=== PATIENT | male | born 1975 | race Caucasian/White ===

== ENCOUNTER → 2020-05-25 14:39 | Outpatient (CLI) | payer OTHER, SELFPAY ==
--- NOTE | 2020-05-25 15:18 | DI.ECHO.S_ITS ---
:Reason For Study: CARDIOMYOPATHY : :Ordering Physician: ROSANNA : :DELGADO Performed By: Helen Hawkins : :Referring: DELGADO MARTE : Interpretation Summary The left ventricle is normal in size and wall thickness. Left ventricular ejection fraction is estimated to be 45%. There has been no significant change since the previous exam. There is mild global hypokinesis of the left ventricle. Diastolic parameters suggest probable normal left ventricular diastolic function and normal filling pressures. The right ventricle is normal in size and function. The left atrial size is normal. Right atrial size is normal. There is no significant valvular heart disease. The aortic root is normal size. Procedure: A two-dimensional transthoracic echocardiogram with color flow and Doppler was performed. The study quality was technically adequate. Comparison is made with the echocardiogram of 09/12/2013. The patient was in sinus rhythm with heart rates between 67-82 bpm during the exam. Left Ventricle: The left ventricle is normal in size and wall thickness. Left ventricular ejection fraction is estimated to be 45%. There has been no significant change since the previous exam. There is mild global hypokinesis of the left ventricle. Diastolic parameters suggest probable normal left ventricular diastolic function and normal filling pressures. Right Ventricle: The right ventricle is normal in size and function. Atria: The left atrial size is normal. Right atrial size is normal. There is no Doppler evidence for an interatrial shunt. Mitral Valve: The mitral valve is normal in structure and function. There is trace mitral regurgitation. Aortic Valve: The aortic valve is not well visualized. The aortic valve opens well. There is no aortic valve stenosis. No aortic regurgitation is present. Tricuspid Valve: The tricuspid valve is normal in structure and function. There is a trace or physiologic amount of tricuspid regurgitation. Pulmonic Valve: The pulmonic valve leaflets are thin and pliable; valve motion is normal. There is no pulmonic valvular regurgitation. There is no significant valvular heart disease. Great Vessels: The aortic root is normal size. The ascending aorta is normal in size. The IVC is of normal diameter and collapses greater than 50% with a sniff. This suggests a low right atrial pressure of 3 mm Hg. Pericardium/ Pleura There is no pericardial effusion. There is no pleural effusion. MMode/2D Measurements & Calculations LVIDd: 5.1 cm LVOT diam: 2.2 cm LVIDs: 3.9 cm Ao root diam: 3.0 cm FS: 24.9 % asc Aorta Diam: 3.0 cm IVSd: 0.71 cm Ao Arch Diam (Prox Trans): 2.5 cm LVPWd: 0.77 cm LV quiroz. diameter/BSA (cm/m^2): 2.8 LV sys. diameter/BSA (cm/m^2): 2.1 LA A2 area: 19.0 cm2 RA long axis: 3.9 cm LA A4 area: 13.2 cm2 RA area: 9.7 cm2 LA length (vol): 4.1 cm RA vol: 20.2 ml LA vol: 52.4 ml RA : 11.0 ml/m2 LA vol index: 28.5 ml/m2 IVC diam: 1.4 cm RVD1 (basal): 2.2 cm TAPSE: 1.7 cm Doppler Measurements & Calculations Ao V2 max: 140.9 cm/sec LVOT Max Wesley: 99.0 cm/sec Ao V2 mean: 94.8 cm/sec LV V1 max P.9 mmHg Ao max P.9 mmHg LV V1 VTI: 17.9 cm Ao mean P.1 mmHg SHADY(I,D): 2.6 cm2 Ao V2 VTI: 26.7 cm SHADY(V,D): 2.7 cm2 sev ratio: 0.67 SHADY indexed to BSA (cm^2/m^2): 1.4 MV E max wesley: 68.3 cm/sec PA V2 max: 72.3 cm/sec MV A max wesley: 51.6 cm/sec PA V2 mean: 55.0 cm/sec MV E/A: 1.3 PA mean P.3 mmHg Med Peak E' Wesley: 9.7 cm/sec PA pr(Accel): 25.9 mmHg E/E' med: 7.0 Lat Peak E' Wesley: 14.7 cm/sec E/E' lat: 4.7 E/e' average: 5.9 MV dec time: 0.24 sec SV(LVOT): 69.9 ml Reading Physician:08:07 PM
== END ==
PROVIDERS: Referring Provider Orthopaedic Surgery; Visit Provider Orthopaedic Surgery
DX: I42.9 Cardiomyopathy, unspecified (principal)
CPT/HCPCS: 93306